=== PATIENT | male | born 1960 | race Caucasian/White ===

== ENCOUNTER → 2020-06-04 10:48 | Outpatient (CLI) | payer OTHER, SELFPAY ==
--- NOTE | ~2020-06-04 | XR_ITS ---
EXAMINATION: XR hip RT min 2V DATE: 06/04/2020 11:28 INDICATION: Right inguinal pain. TECHNIQUE: 3 views of right hip were obtained. COMPARISON: None. FINDINGS: Bone alignment is normal. No fracture. There is mild right hip osteoarthritis. IMPRESSION: 1. Mild right hip osteoarthritis. Reviewed, dictated and finalized at location A. [employer]
--- NOTE | ~2020-06-04 | XR_ITS ---
EXAMINATION: XR hip LT min 2V DATE: 06/04/2020 11:28 INDICATION: Left inguinal pain. TECHNIQUE: 3 views of left hip were obtained. COMPARISON: None. FINDINGS: Bone alignment is normal. No fracture. There is mild left hip osteoarthritis. There is a 2. 8 cm radiopaque foreign body in the anterior thigh. IMPRESSION: 1. Mild left hip osteoarthritis. 2. Radiopaque foreign body in the anterior thigh. Reviewed, dictated and finalized at location A. METER READER
--- NOTE | ~2020-06-04 | XR_ITS ---
EXAMINATION: XR lumbar spine min 4V DATE: 06/04/2020 11:28 INDICATION: Bilateral low back pain TECHNIQUE: Anteroposterior, lateral, and bilateral oblique views of the lumbar spine, and cone-down l ateral view of the lumbosacral junction were obtained. COMPARISON: None. FINDINGS: There is no fracture, dislocation, or subluxation. The vertebral body heights and alignment are normal. The intervertebral disc spaces are maintained. Small degenerative osteophytes project fr om the anterior endplates of multiple vertebral bodies. There is moderate facet osteoarthritis of the lower lumbar spine. Surgical clips in the right upper quadrant are likely from prior cholecystectomy . Calcified atherosclerosis is noted. Phleboliths are present in the pelvis. IMPRESSION: 1. Mild lumbar spondylosis without acute osseous abnormality. Reviewed, dictated and finalized at location A. N INSPECTOR
== END ==
PROVIDERS: PCP Internal Medicine; Visit Provider Internal Medicine
DX: M47.896 Other spondylosis, lumbar region (principal); S70.352A Superficial foreign body, left thigh, initial encounter; X58.XXXA Exposure to other specified factors, initial encounter; M16.0 Bilateral primary osteoarthritis of hip
CPT/HCPCS: 72110; 73502

== ENCOUNTER 2020-11-30 13:35 | Outpatient (CLI) | payer OTHER, SELFPAY ==
--- NOTE | ~2020-11-30 | US_ITS ---
EXAMINATION: US venous doppler [facility] EXAM DATE: 11/30/2020 14:31 INDICATION: Left leg swelling, edema. TECHNIQUE: Multiple grayscale, color flow and Doppler images of the left lower extremity deep venous system were obtained and reviewed. There is no prior study for comparison. FINDINGS: The left common femoral, femoral and profunda veins demonstrate normal color flow, respirat ory variation, augmentation and compressibility. Compressibility, color flow confirmed within the le ft popliteal, posterior tibial, peroneal, and greater saphenous veins. IMPRESSION: No left lower extremity deep venous thrombosis. Reviewed, dictated and finalized at location B.
== END 2020-11-30 13:36 | disposition home or self-care (01) ==
LOC: ANHIMG 13:47
PROVIDERS: PCP Internal Medicine; Visit Provider Orthopaedic Surgery
DX: R60.0 Localized edema (principal)
CPT/HCPCS: 93971